=== PATIENT | male | born 2000 | race Caucasian/White ===

== ENCOUNTER → 2020-09-27 | Outpatient (CLI) | payer OTHER ==
--- NOTE | 2020-09-27 09:21 | RAD ---
EXAM: PA and Lateral Views of the Chest DATE: 09/27/2020 8:43 AM INDICATION: Reason: LEFT UPPER CHEST WALL PAIN / Spl. Instructions: / History: COMPARISON: No Prior FINDINGS: The heart is not enlarged. Mediastinal and hilar contours are normal. No focal parenchymal airspace opacity. No pleural effusion or pneumothorax. IMPRESSION: 1. No radiographic evidence for acute cardiopulmonary process. Electronically signed by: Hever Ramirez MD (09/27/2020 9:18 AM) [id number]
== END ==
LOC: PMG 08:35
PROVIDERS: ATTEND Physician Assistant Medical
DX: R07.89 Other chest pain (principal)
CPT/HCPCS: 71046